=== PATIENT | female | born 1960 | race Caucasian/White ===

== ENCOUNTER 2016-12-25 10:06 | Observation (INO) | payer OTHER ==
--- NOTE | 2016-12-25 10:51 | ED PDOC ---
HPI: Back Time Seen by Provider: 12/25/16 10:30 Chief Complaint (Nursing): Female Genitourinary Chief Complaint (Provider): back pain History Per: Patient History/Exam Limitations: no limitations Onset/Duration Of Symptoms: Days (x 7) Additional Complaint(s): Anila Nunez is a 56 year old female, with a previous medical history of plycystic kidney disease, who presents to the ED with complaints of bilateral lower back pain associated with hematuria ongoing for the past week. Patient denies any fever or chills. She reports taking tylenol with minimal relief. PMD: Frederick Canela MD Nephrology: Dr. Varela Past Medical History Reviewed: Historical Data, Nursing Documentation, Vital Signs Vital Signs: Last Vital Signs Temp 97.6 F 12/25/16 10:11 Pulse 63 12/25/16 10:11 Resp 18 12/25/16 10:11 BP 116/76 12/25/16 10:11 Pulse Ox 100 12/25/16 10:11 - Medical History PMH: Anxiety, Asthma, HTN, Hypercholesterolemia, Hypothyroidism, Chronic Kidney Disease - Family History Family History: States: Unknown Family Hx - Home Medications Home Medications: Ambulatory Orders Medication Instructions Recorded Hydroxychloroquine Sulfate 200 mg PO BID 07/10/14 Albuterol HFA [Ventolin HFA 90 2 puff IH Q4H PRN 12/25/16 mcg/actuation (8 g)] Calcitriol [Rocaltrol] 0.5 mcg PO Q48H 12/25/16 Ergocalciferol (Vitamin D2) 50,000 unit PO QWK 12/25/16 [Vitamin D2] Levothyroxine [Synthroid] 25 mcg PO DAILY 12/25/16 Lidocaine 5% [Lidoderm] 1 patch TD DAILY PRN 12/25/16 Lisinopril [Zestril] 2.5 mg PO DAILY 12/25/16 Pravastatin Sodium [Pravachol] 10 mg PO DAILY 12/25/16 Sevelamer Carbonate [Renvela] 800 mg PO BID 12/25/16 - Allergies Allergies/Adverse Reactions: Allergies Allergy/AdvReac Type Severity Reaction Status Date / Time No Known Allergies Allergy Verified 12/25/16 10:23 Review of Systems ROS Statement: Except As Marked, All Systems Reviewed And Found Negative Constitutional: Negative for: Fever, Chills Genitourinary Female: Positive for: Hematuria Musculoskeletal: Positive for: Back Pain Physical Exam - Reviewed Nursing Documentation Reviewed: Yes Vital Signs Reviewed: Yes - Physical Exam Appears: Positive for: Well, Non-toxic, In Acute Distress (moderate painful) Head Exam: Positive for: ATRAUMATIC, NORMAL INSPECTION, NORMOCEPHALIC Skin: Positive for: Normal Color, Warm, Dry Eye Exam: Positive for: EOMI, Normal appearance, PERRL ENT: Positive for: Normal ENT Inspection Neck: Positive for: Normal, Painless ROM, Supple Cardiovascular/Chest: Positive for: Regular Rate, Rhythm Respiratory: Positive for: CNT, Normal Breath Sounds Gastrointestinal/Abdominal: Positive for: Bowel Sounds, Soft, Tenderness ( bilateral lower quadrants ) Back: Positive for: Other (bilateral lower back tenderness) Extremity: Positive for: Normal ROM Neurologic/Psych: Positive for: Alert, Oriented - Laboratory Results Result Diagrams: 12/25/16 11:43 12/25/16 11:43 - ECG O2 Sat by Pulse Oximetry: 100 (RA) Pulse Ox Interpretation: Normal Medical Decision Making Medical Decision Making: Initial Plan: * CT abd & pelvus w/o contrast * CT renal protocol * labs * PTT * PT * morphine 2 mg IV * urine culture * urinalysis * reevaluation 13:18 CT abd/pelvis FINDINGS: LOWER THORAX: Unremarkable. LIVER: Normal size, contour and attenuation. 9 mm nonspecific rounded low-attenuation lesion in the right hepatic lobe. This has increased in size when compared to prior CT examination of 09/12/2009. ll this measured approximately 6 mm at that time. No biliary dilatation. GALLBLADDER AND BILE DUCTS: Unremarkable. PANCREAS: No mass. There is mild pancreatic ductal dilatation noted in the head and body of the pancreas. This is most prominent at the head/ body junction where it measures up to 6 mm in diameter. Consider evaluation with MRCP. Please note that this pancreatic ductal dilatation was not evident on prior CT examination of 09/12/2009. SPLEEN: Unremarkable. ADRENALS: Unremarkable. No mass. KIDNEYS AND URETERS: Innumerable bilateral renal cysts, of varying attenuation, some truly hyperdense cysts. Curvilinear and nodular mural calcifications within many of these cysts. No hydronephrosis. No hydroureter or ureteral calculus. Findings consistent with adult polycystic kidney disease. This is unchanged in comparison to examination of 09/12/2009. VASCULATURE: Unremarkable. No aortic aneurysm. BOWEL: Sigmoid diverticulosis without evidence of diverticulitis. No bowel obstruction. No other abnormal bowel loops. APPENDIX: Unremarkable. Normal appendix. PERITONEUM: Unremarkable. No free fluid. No free air. LYMPH NODES: Unremarkable. No enlarged lymph nodes. BLADDER: Unremarkable. REPRODUCTIVE: Unremarkable uterus. BONES: No acute fracture. OTHER FINDINGS: None. IMPRESSION: Probable adult polycystic kidney disease. The kidneys are unchanged in appearance when compared to examination of 09/12/2009. No evidence of urinary tract obstruction. 9 mm nonspecific rounded low-attenuation lesion in the right hepatic lobe increased mildly in size from 09/12/2009. Pancreatic ductal dilatation of uncertain etiology. Consider further evaluation with MRCP. No other acute abnormality. Pt had copy of labs drawn on 12/17/16 (scanned into chart), BUN/creat=30/2.17. Scribe Attestation: Documented by Pinky Medina, acting as a scribe for Pinky Martin MD. Provider Scribe Attestation: All medical record entries made by the Scribe were at my direction and personally dictated by me. I have reviewed the chart and agree that the record accurately reflects my personal performance of the history, physical exam, medical decision making, and the department course for this patient. I have also personally directed, reviewed, and agree with the discharge instructions and disposition. ED OBSERVATION Date of observation admission: 12/25/16 Time of observation admission: 12:00 - Observation admission statement Patient is being placed in observation because:: further workup required - Goals of Observation Goals of observation are:: results of further workup Disposition - Clinical Impression Clinical Impression: Urinary tract infection - Patient ED Disposition Is Patient to be Admitted: Transfer of Care - Disposition Disposition Time: 17:00 Condition: STABLE Patient Signed Over To: Matthew Ramos Handoff Comments: Pending CT.
[2016-12-25 11:39] LABS: SQUAMOUS EPITHIAL 1 /hpf (0-5); URINE BACTERIA RARE (<OCC); URINE BILIRUBIN NEGATIVE (NEGATIVE); URINE BLOOD NEGATIVE (NEGATIVE); URINE CLARITY CLEAR (Clear); URINE COLOR STRAW (YELLOW); URINE GLUCOSE (UA) NEG (Normal); URINE LEUKOCYTE ESTERASE SMALL Leu/uL (Negative); URINE NITRATE NEGATIVE (NEGATIVE); URINE PROTEIN NEGATIVE (NEGATIVE); URINE UROBILINOGEN 0.2-1.0 mg/dL (0.2-1.0)
[2016-12-25 11:50] LABS: BASO # 0.1 K/uL (0.0-0.2); BASO % 1.1 % (0.0-2.0); EOS # 0.3 K/uL (0.0-0.7); EOS % 3.5 % (0.0-4.0); HEMOGLOBIN 13.1 g/dL (12.0-16.0); LYMPH # 2.4 K/uL (1.0-4.3); LYMPH % 30.3 % (20.0-40.0); MEAN CELL VOLUME 90.5 fl (81.0-99.0); MEAN CORPUSCULAR HEMOGLOBIN 30.3 pg (27.0-31.0); MEAN CORPUSCULAR HGB CONC 33.5 g/dL (33.0-37.0); MONO # 0.4 K/uL (0.0-0.8); MONO % 5.7 % (0.0-10.0); NEUT # 4.6 K/uL (1.8-7.0); NEUT % 59.4 % (50.0-75.0); NRBC % 0.1 % (0.0-0.0); RBC 4.32 Mil/uL (3.80-5.20); RED CELL DISTRIBUTION WIDTH 13.5 % (11.5-14.5); WHITE BLOOD COUNT 7.8 K/uL (4.8-10.8)
[2016-12-25 11:57] LABS: ALB/GLOB RATIO 1.2 (1.0-2.1); ALBUMIN 4.4 g/dL (3.5-5.0); CALCIUM 9.5 mg/dL (8.4-10.2)
[2016-12-25 12:24] LABS: INR 1.1 (0.9-1.2); PARTIAL THROMBOPLASTIN TIME 26.1 Seconds (25.6-37.1)
--- NOTE | 2016-12-25 13:19 | CT ---
PROCEDURE: CT Abdomen and Pelvis without intravenous contrast HISTORY: BLQ pain, hematuria, PKD COMPARISON: 09/12/2009 TECHNIQUE: Without contrast.. Contrast Dose: 0 Radiation dose: Total exam DLP = 1015.31 mGy-cm. This CT exam was performed using one or more of the following dose reduction techniques: Automated exposure control, adjustment of the mA and/or kV according to patient size, and/or use of iterative reconstruction technique. FINDINGS: LOWER THORAX: Unremarkable. LIVER: Normal size, contour and attenuation. 9 mm nonspecific rounded low-attenuation lesion in the right hepatic lobe. This has increased in size when compared to prior CT examination of 09/12/2009. ll this measured approximately 6 mm at that time. No biliary dilatation. GALLBLADDER AND BILE DUCTS: Unremarkable. PANCREAS: No mass. There is mild pancreatic ductal dilatation noted in the head and body of the pancreas. This is most prominent at the head/ body junction where it measures up to 6 mm in diameter. Consider evaluation with MRCP. Please note that this pancreatic ductal dilatation was not evident on prior CT examination of 09/12/2009. SPLEEN: Unremarkable. ADRENALS: Unremarkable. No mass. KIDNEYS AND URETERS: Innumerable bilateral renal cysts, of varying attenuation, some truly hyperdense cysts. Curvilinear and nodular mural calcifications within many of these cysts. No hydronephrosis. No hydroureter or ureteral calculus. Findings consistent with adult polycystic kidney disease. This is unchanged in comparison to examination of 09/12/2009. VASCULATURE: Unremarkable. No aortic aneurysm. BOWEL: Sigmoid diverticulosis without evidence of diverticulitis. No bowel obstruction. No other abnormal bowel loops. APPENDIX: Unremarkable. Normal appendix. PERITONEUM: Unremarkable. No free fluid. No free air. LYMPH NODES: Unremarkable. No enlarged lymph nodes. BLADDER: Unremarkable. REPRODUCTIVE: Unremarkable uterus. BONES: No acute fracture. OTHER FINDINGS: None. IMPRESSION: Probable adult polycystic kidney disease. The kidneys are unchanged in appearance when compared to examination of 09/12/2009. No evidence of urinary tract obstruction. 9 mm nonspecific rounded low-attenuation lesion in the right hepatic lobe increased mildly in size from 09/12/2009. Pancreatic ductal dilatation of uncertain etiology. Consider further evaluation with MRCP. No other acute abnormality.
[2016-12-26] MEDS ORDERED: Dextrose 5%/0.45% NS 1,000 ML IV SCH (07:00)
--- NOTE | 2016-12-26 10:22 | CP.PCM.HP ---
History of Present Illness - History of Present Illness History of Present Illness: 56 y/o F with PMHx of HTN, RA, Polycystic Kidney disease, Hypothyroidism presenting to ED c/o severe lower back pain that sterted yesterday morning when she woke up from sleeping. Patient states no radiation to lower extremities, aggravating by changes in position, and no associated to urinary symptoms, weakness, numbness or tingling of lower extremities. denies fevers, chills, nausea, vomiting or other complains. Present on Admission - Present on Admission Any Indicators Present on Admission: No History of DVT/PE: No History of Uncontrolled Diabetes: No Urinary Catheter: No Decubitus Ulcer Present: No Review of Systems - Review of Systems All systems: reviewed and no additional remarkable complaints except (as per HPI ) Past Patient History - Infectious Disease Hx of Infectious Diseases: None - Past Medical History & Family History Past Medical History?: Yes - Past Social History Smoking Status: Never Smoked - CARDIAC Hx Hypercholesterolemia: Yes Hx Hypertension: Yes - PULMONARY Hx Respiratory Disorders: Yes Hx Asthma: Yes - NEUROLOGICAL Hx Neurological Disorder: No - HEENT Hx HEENT Problems: No - RENAL Hx Chronic Kidney Disease: Yes Other/Comment: polycystic kidney disease - ENDOCRINE/METABOLIC Hx Endocrine Disorders: Yes Hx Hypothyroidism: Yes - HEMATOLOGICAL/ONCOLOGICAL Hx Blood Disorders: No - INTEGUMENTARY Hx Dermatological Problems: No - MUSCULOSKELETAL/RHEUMATOLOGICAL Hx Falls: No - GASTROINTESTINAL Hx Gastrointestinal Disorders: No - GENITOURINARY/GYNECOLOGICAL Hx Genitourinary Disorders: Yes Other/Comment: POLYCYSTIC KIDNEY DISEASE - PSYCHIATRIC Hx Psychophysiologic Disorder: No Hx Substance Use: No - SURGICAL HISTORY Other/Comment: Abdominoplasty. Left knee surgery x 1 year ago - ANESTHESIA Hx Anesthesia: Yes Hx Anesthesia Reactions: No Meds Allergies/Adverse Reactions: Allergies Allergy/AdvReac Type Severity Reaction Status Date / Time No Known Allergies Allergy Verified 12/25/16 10:23 Physical Exam - Head Exam Head Exam: NORMAL INSPECTION - Eye Exam Eye Exam: Normal appearance - ENT Exam ENT Exam: Mucous Membranes Moist - Respiratory Exam Respiratory Exam: Clear to Auscultation Bilateral, NORMAL BREATHING PATTERN - Cardiovascular Exam Cardiovascular Exam: REGULAR RHYTHM, +S1, +S2 - GI/Abdominal Exam GI & Abdominal Exam: Normal Bowel Sounds, Soft. absent: Distended, Guarding, Rigid, Tenderness - Extremities Exam Extremities exam: Positive for: normal inspection. Negative for: calf tenderness, pedal edema - Back Exam Back exam: NORMAL INSPECTION. absent: CVA tenderness (L), CVA tenderness (R) Additional comments: tenderness to palpation over lumbosacral vertebral spine, and paraspinal muscles - Neurological Exam Neurological exam: Alert, Oriented x3 - Psychiatric Exam Psychiatric exam: Normal Affect, Normal Mood - Skin Skin Exam: Dry, Intact, Normal Color Results - Vital Signs Recent Vital Signs: Last Vital Signs Temp 97.0 F L 12/26/16 10:10 Pulse 56 L 12/26/16 10:10 Resp 18 12/26/16 10:10 BP 117/70 12/26/16 10:10 Pulse Ox 98 12/26/16 10:10 - Labs Result Diagrams: 12/25/16 11:43 12/25/16 11:43 Labs: Laboratory Results - last 24 hr 12/25/16 17:37 Lipase 224 Assessment & Plan - Assessment and Plan (Free Text) Assessment: 56 y/o F with PMHx of HTN, RA, Polycystic Kidney disease, Hypothyroidism admitted to manage intractable lower back pain. Plan: Intractable lower back pain admit for management Morphine 4 mg IVP once in ED c/w pain control -CT abd/pelvis showed PKD, and pancreatic ductal dilation of uncertain etiology.MRCP recommended -f/u MRCP results Hypothyroidism c/w home medication CKD stage 3 most likely secondary to Polycystic Kidney Disease Stable, no hematuria GFR 30 c/w home renvela BID DVT prophylaxis patient is ambulating - Date & Time Date: 12/26/16 Time: 10:45
--- NOTE | 2016-12-26 12:33 | MRI ---
MRCP Indication: Enlarged pancreatic duct Technique: Multiplanar, multisequence MR images of the abdomen were obtained, including heavily T2 weighted MRCP images of the biliary system. Rotating maximum intensity projection images of the biliary system were generated. A total of 669 images were submitted for review. Comparison: CT of the abdomen and pelvis without oral or IV contrast performed 12/25/16 Findings: Examination limited by patient motion. 7 mm T2 hyperintensity at the right hepatic lobe cannot be further characterized on this study, likely cyst. There is no intrahepatic biliary ductal dilatation. Visualized common bile duct appears within normal limits of caliber without definite focal filling defect. The distal most aspect of the common bile duct is not visualized at the level of the confluence. The pancreatic duct appears minimally dilated measuring up to 4 mm in caliber. 4 mm T2 hyperintensity at the pancreatic tail, possibly tiny IPMN. No definite filling defects are seen in the common bile duct or pancreatic duct. Innumerable bilateral T2 renal hyperintensities consistent with cysts demonstrated on CT performed 12/25/16. These cannot be further assessed in the absence of IV contrast. Appearance consistent with adult polycystic kidney disease. The included portions of the noncontrast adrenal glands, spleen, and gallbladder appear unremarkable. No bulky abdominal lymphadenopathy is seen. No ascites. No acute osseous abnormality is detected. Impression: Limited study. Visualized common bile duct appears within normal limits of caliber without definite focal filling defect. The distal most aspect of the common bile duct is not visualized at the level of the confluence. The pancreatic duct appears minimally dilated measuring up to 4 mm in caliber. 4 mm T2 hyperintensity at the pancreatic tail, possibly tiny IPMN. Innumerable bilateral T2 renal hyperintensities consistent with cysts demonstrated on CT performed 12/25/16. These cannot be further assessed in the absence of IV contrast. Appearance consistent with adult polycystic kidney disease. 7 mm T2 hyperintensity at the right hepatic lobe cannot be further characterized on this study, likely cyst.
[2016-12-27] MEDS: Levothyroxine 25 MCG TAB PO SCH (06:44)
[2016-12-27] MEDS: Sevelamer Carb 0.8 gm/Packet PO SCH ×2 (08:28→17:00)
[2016-12-27] MEDS ORDERED: Oxycodone/Acetaminophen 5/325 mg Tab PO PRN (10:31)
[2016-12-27 10:38] LABS: BASO % 0.6 % (0.0-2.0); EOS # 0.3 K/uL (0.0-0.7); EOS % 3.9 % (0.0-4.0); HEMOGLOBIN 12.6 g/dL (12.0-16.0); LYMPH # 1.8 K/uL (1.0-4.3); LYMPH % 22.7 % (20.0-40.0); MEAN CELL VOLUME 89.7 fl (81.0-99.0); MEAN CORPUSCULAR HEMOGLOBIN 30.8 pg (27.0-31.0); MEAN CORPUSCULAR HGB CONC 34.3 g/dL (33.0-37.0); MEAN PLATELET VOLUME 8.4 fl (7.2-11.7); MONO # 0.5 K/uL (0.0-0.8); MONO % 5.7 % (0.0-10.0); NEUT # 5.5 K/uL (1.8-7.0); NEUT % 67.1 % (50.0-75.0); NRBC % 0.1 % (0.0-0.0); RBC 4.1 Mil/uL (3.80-5.20); RED CELL DISTRIBUTION WIDTH 13.2 % (11.5-14.5); WHITE BLOOD COUNT 8.1 K/uL (4.8-10.8)
[2016-12-27 11:00] LABS: ALB/GLOB RATIO 1.2 (1.0-2.1); ALBUMIN 4.2 g/dL (3.5-5.0); CALCIUM 9.4 mg/dL (8.4-10.2)
--- NOTE | 2016-12-27 12:35 | CP.PCM.PN ---
Subjective - Date & Time of Evaluation Date of Evaluation: 12/27/16 Time of Evaluation: 09:00 - Subjective Subjective: Patient is still complaining of lower back pain, now radiating to left lower extremity. No numbness, tingling or weakness in lower extremities. Denies chills, N/V or urinary symptoms. Afebrile Objective - Vital Signs/Intake and Output Vital Signs (last 24 hours): Temp Pulse Resp BP Pulse Ox 97.6 F 63 20 114/74 99 12/27/16 08:45 12/27/16 08:45 12/27/16 08:45 12/27/16 08:45 12/27/16 08:45 - Medications Medications: Current Medications Ketorolac Tromethamine (Toradol) 15 mg IVP Q6 PRN PRN Reason: Pain, moderate (4-7) Levothyroxine Sodium (Synthroid) 25 mcg PO DAILY@0630 [facility] Last Admin: 12/27/16 06:44 Dose: 25 mcg Ondansetron HCl (Zofran Inj) 4 mg IVP Q6 PRN PRN Reason: Nausea/Vomiting Oxycodone/Acetaminophen (Percocet 5/325 Mg Tab) 2 tab PO Q6 PRN PRN Reason: Pain, severe (8-10) Stop: 12/30/16 10:32 Sevelamer Carbonate (Renvela) 0.8 gm PO BID [facility] Last Admin: 12/27/16 08:28 Dose: 0.8 gm - Labs Labs: 12/27/16 10:32 12/27/16 10:32 PT 11.0 Seconds (9.8-13.1) 12/25/16 11:43 INR 1.1 (0.9-1.2) 12/25/16 11:43 APTT 26.1 Seconds (25.6-37.1) 12/25/16 11:43 - Additional Findings Additional findings: Head Exam Head Exam: NORMAL INSPECTION - Eye Exam Eye Exam: Normal appearance - ENT Exam ENT Exam: Mucous Membranes Moist - Respiratory Exam Respiratory Exam: Clear to Auscultation Bilateral, NORMAL BREATHING PATTERN - Cardiovascular Exam Cardiovascular Exam: REGULAR RHYTHM, +S1, +S2 - GI/Abdominal Exam GI & Abdominal Exam: Normal Bowel Sounds, Soft. absent: Distended, Guarding, Rigid, Tenderness - Extremities Exam Extremities exam: Positive for: normal inspection. Negative for: calf tenderness, pedal edema - Back Exam Back exam: NORMAL INSPECTION. absent: CVA tenderness (L), CVA tenderness (R) Additional comments: tenderness to palpation over lumbosacral vertebral spine, and paraspinal muscles - Neurological Exam Neurological exam: Alert, Oriented x3 - Psychiatric Exam Psychiatric exam: Normal Affect, Normal Mood - Skin Skin Exam: Dry, Intact, Normal Color Assessment and Plan - Assessment and Plan (Free Text) Assessment: 56 y/o F with PMHx of HTN, RA, Polycystic Kidney disease, Hypothyroidism admitted to manage intractable lower back pain. Plan: Intractable lower back pain f/u lumbar spine MRI c/w pain control Pancreatic duct dilation in MRCP -CT abd/pelvis showed PKD, and pancreatic ductal dilation of uncertain etiology. -MRCP showed limited study and similar CT findings -GI consult appreciated Hypothyroidism c/w home medication CKD stage 3 most likely secondary to Polycystic Kidney Disease Stable, no hematuria GFR 30 c/w home renvela BID DVT prophylaxis patient is ambulating
--- NOTE | 2016-12-27 15:21 | MRI ---
PROCEDURE: MR LUMBAR SPINE WITHOUT CONTRAST HISTORY: intractable back pain COMPARISON: None available. TECHNIQUE: Multiecho multiplanar sequences were performed through the lumbar spine without the use of intravenous contrast. FINDINGS: Normal lumbar lordosis. Vertebral body heights are preserved. Marrow signal is remarkable for benign hemangioma at the inferior margins of the L2 vertebral body. Marked disc desiccation affects L3-4 through L5-S1 inclusively. Conus medullaris unremarkable at the level of L1. Prevertebral and paraspinal araspinal soft tissues are unremarkable. T12-L1: No disc herniation, spinal canal stenosis or neural foraminal narrowing. L1-2: No disc herniation, spinal canal stenosis or neural foraminal narrowing. L2-3: No disc herniation, general spinal canal stenosis or neural foraminal narrowing. The bilateral lateral recesses are encroached by mild to moderate facet degenerative arthropathy and minimal generalized disc bulging. Borderline bilateral neural foraminal stenoses are suggested. L3-4: No disc herniation, general spinal canal stenosis or neural foraminal narrowing. Lateral recesses are encroached by minimal disc bulging and pddx-rf-[id number] facet degenerative arthropathy. L4-5: No disc herniation or neural foraminal narrowing. There is a borderline central stenosis caused by mild generalized disc bulging and evji-mp-ovwbraum facet joint arthropathy with stenosis concentrated at the lateral recesses symmetrically. L5-S1: A small foraminal disc protrusion is suggested encroaching the inferior margins of the exiting left L5 nerve root in causing mild left neural foraminal stenosis. Minimal disc bulging is encountered here as well as [id number]-[id number] facet degenerate change without significant central canal stenosis. The right neural foramen appears normal. OTHER FINDINGS: Incidental note is made of innumerable cysts in the visualized bilateral kidneys in this patient with a known history of polycystic kidney disease. IMPRESSION: 1. A left foraminal disc protrusion encroaches the inferior left L5 exiting nerve root and causes mild left neural foraminal stenosis. Limited disc bulging is seen generalized at this level as well. 2. Limited multilevel degenerative facet joint and disc bulge changes narrow the lateral recesses at the mid to inferior lumbar spine as discussed above with L4-5 seen worst but with only borderline central canal stenosis. No additional disc herniation appreciated.
--- NOTE | 2016-12-27 21:14 | CON ---
DATE: 12/27/2016 REASON FOR CONSULTATION: MRI with pancreatic cysts. HISTORY OF PRESENT ILLNESS: This is a very yoly 56-year-old female who essentially has a history of positive kidney disease who essentially came in with bilateral low back pain and some hematuria for the past week or so. The patient has been taken Tylenol with minimum relief and was admitted for that. The MRI demonstrates that she has multiple cysts in the pancreas. The patient denies any abdominal discomfort, but complaints of occasional reflux and GERD with some significant weight loss, but cannot quantify. No change in appetite or bowel habits. Currently lying in bed, comfortable and in no apparent distress. PAST MEDICAL HISTORY: As above. PAST SURGICAL HISTORY: As above. MEDICATIONS: Have been reviewed. REVIEW OF SYSTEMS: All other systems have been reviewed, negative apart from the HPI. PHYSICAL EXAMINATION: GENERAL: A pleasant middle-aged female lying in bed comfortably, in no apparent distress. VITAL SIGNS: Grossly unremarkable. HEENT: Head is normocephalic and atraumatic. Eyes; pupils are equal and reactive to light bilaterally. No conjunctival pallor or icterus. NECK: Supple. Normal range of motion. No lymphadenopathy appreciated. HEART: S1 and S2. Regular rate and rhythm. No murmurs appreciated. LUNGS: Coarse breath sounds bilaterally. ABDOMEN: Soft and nontender. Bowel sounds present. No rebound. No guarding. RECTAL: Deferred. EXTREMITIES: Peripheral pulses felt bilaterally. SKIN: Warm and dry and intact. NEUROLOGIC: A and O x3. LABORATORY DATA: Reviewed. CBC is normal. INR is normal. LFTs are normal. Creatinine is 2.1 and BUN is 32. MRI demonstrates multiple cysts in the pancreas, this was done without contrast because she has a creatinine that is 2.1, consider for IPMN, PD is minimally dilated. ASSESSMENT AND PLAN: This is a 56-year-old female with multiple cysts. Unclear etiology of the cysts because she does have positive kidney disease. This could be just benign cysts of the pancreas. We would not need to get a contrast study, either a CT, but possibly MRI with IV contrast, although creatinine at this point is favoring that. We will get a CA19-9. We will follow the patient with you. Thank you for the consult. Chaitanya Coleman MD/ PhD cc: Bryon Barraza MD
[2016-12-28] MEDS: Levothyroxine 25 MCG TAB PO SCH (05:42)
[2016-12-28] MEDS: Sevelamer Carb 0.8 gm/Packet PO SCH (09:21)
[2016-12-28 09:41] VITALS: PULSE 73; RESP 18; TEMP 98.8; O2SAT 99
[2016-12-28 10:32] VITALS: BP 103/66
--- NOTE | 2016-12-28 12:41 | CP.PCM.PN ---
Subjective - Date & Time of Evaluation Date of Evaluation: 12/28/16 Time of Evaluation: 12:00 - Subjective Subjective: no pain Objective - Vital Signs/Intake and Output Vital Signs (last 24 hours): Temp Pulse Resp BP Pulse Ox 98.8 F 73 18 103/66 99 12/28/16 09:30 12/28/16 09:30 12/28/16 09:30 12/28/16 10:32 12/28/16 09:30 - Medications Medications: Current Medications Ketorolac Tromethamine (Toradol) 15 mg IVP Q6 PRN PRN Reason: Pain, moderate (4-7) Last Admin: 12/28/16 05:33 Dose: 15 mg Levothyroxine Sodium (Synthroid) 25 mcg PO DAILY@0630 [facility] Last Admin: 12/28/16 05:42 Dose: 25 mcg Ondansetron HCl (Zofran Inj) 4 mg IVP Q6 PRN PRN Reason: Nausea/Vomiting Oxycodone/Acetaminophen (Percocet 5/325 Mg Tab) 2 tab PO Q6 PRN PRN Reason: Pain, severe (8-10) Stop: 12/30/16 10:32 Sevelamer Carbonate (Renvela) 0.8 gm PO BID [facility] Last Admin: 12/28/16 09:21 Dose: 0.8 gm - Labs Labs: 12/27/16 10:32 12/27/16 10:32 PT 11.0 Seconds (9.8-13.1) 12/25/16 11:43 INR 1.1 (0.9-1.2) 12/25/16 11:43 APTT 26.1 Seconds (25.6-37.1) 12/25/16 11:43 - GI/Abdominal Exam GI & Abdominal Exam: Soft, Normal Bowel Sounds Assessment and Plan - Assessment and Plan (Free Text) Assessment: 56 yo female with pancreatic cysts needs contrast imaging but with Cr elevated need to wait until gfr improves ca 19-9 noted dc planning f/u with me in office in 1-2 weeks
--- NOTE | 2016-12-28 13:05 | CP.PCM.DIS ---
Provider - Provider Date of Admission: 12/25/16 14:27 Attending physician: Bryon Barraza MD Time Spent in preparation of Discharge (in minutes): 30 Diagnosis - Discharge Diagnosis (1) Intervertebral disc protrusion Status: Acute Priority: High Comment: Improving. Naproxen 500 mg BID with meals. F/U with PMD: Dr. Canela in 1 week (2) Polycystic kidney disease Status: Chronic Priority: Medium Comment: Asymptomatic. f/u as outpatient (3) CKD (chronic kidney disease) stage 4, GFR 15-29 ml/min Status: Chronic (4) Pancreatic cyst Status: Acute Priority: Medium Comment: f/u with GI, Dr. Coleman. Hospital Course - Lab Results Lab Results: Most Recent Lab Values WBC 8.1 K/uL (4.8-10.8) 12/27/16 10:32 RBC 4.10 Mil/uL (3.80-5.20) 12/27/16 10:32 Hgb 12.6 g/dL (12.0-16.0) 12/27/16 10:32 Hct 36.8 % (34.0-47.0) 12/27/16 10:32 MCV 89.7 fl (81.0-99.0) 12/27/16 10:32 MCH 30.8 pg (27.0-31.0) 12/27/16 10:32 MCHC 34.3 g/dL (33.0-37.0) 12/27/16 10:32 RDW 13.2 % (11.5-14.5) 12/27/16 10:32 Plt Count 259 K/uL (130-400) 12/27/16 10:32 MPV 8.4 fl (7.2-11.7) 12/27/16 10:32 Neut % (Auto) 67.1 % (50.0-75.0) 12/27/16 10:32 Lymph % (Auto) 22.7 % (20.0-40.0) 12/27/16 10:32 Levy % (Auto) 5.7 % (0.0-10.0) 12/27/16 10:32 Eos % (Auto) 3.9 % (0.0-4.0) 12/27/16 10:32 Baso % (Auto) 0.6 % (0.0-2.0) 12/27/16 10:32 Neut # 5.5 K/uL (1.8-7.0) 12/27/16 10:32 Lymph # 1.8 K/uL (1.0-4.3) 12/27/16 10:32 Levy # 0.5 K/uL (0.0-0.8) 12/27/16 10:32 Eos # 0.3 K/uL (0.0-0.7) 12/27/16 10:32 Baso # 0.0 K/uL (0.0-0.2) 12/27/16 10:32 PT 11.0 Seconds (9.8-13.1) 12/25/16 11:43 INR 1.1 (0.9-1.2) 12/25/16 11:43 APTT 26.1 Seconds (25.6-37.1) 12/25/16 11:43 Sodium 141 mmol/l (132-148) 12/27/16 10:32 Potassium 4.2 MMOL/L (3.6-5.0) 12/27/16 10:32 Chloride 108 mmol/L (98-107) H 12/27/16 10:32 Carbon Dioxide 25 mmol/L (22-30) 12/27/16 10:32 Anion Gap 12 (10-20) 12/27/16 10:32 BUN 29 mg/dl (7-17) H 12/27/16 10:32 Creatinine 1.9 mg/dL (0.7-1.2) H 12/27/16 10:32 Est GFR ( Amer) 33 12/27/16 10:32 Est GFR (Non-Af Amer) 27 12/27/16 10:32 Random Glucose 81 mg/dL (65-105) 12/27/16 10:32 Calcium 9.4 mg/dL (8.4-10.2) 12/27/16 10:32 Total Bilirubin 0.7 mg/dl (0.2-1.3) 12/27/16 10:32 AST 23 U/L (14-36) 12/27/16 10:32 ALT 37 U/L (9-52) 12/27/16 10:32 Alkaline Phosphatase 51 U/L (38-126) 12/27/16 10:32 Total Protein 7.6 G/DL (6.3-8.2) 12/27/16 10:32 Albumin 4.2 g/dL (3.5-5.0) 12/27/16 10:32 Globulin 3.4 gm/dL (2.2-3.9) 12/27/16 10:32 Albumin/Globulin Ratio 1.2 (1.0-2.1) 12/27/16 10:32 Lipase 224 U/L (23-300) 12/25/16 17:37 CA 19-9 Antigen 66.2 U/mL (0-37) H 12/27/16 11:41 Urine Color Straw (YELLOW) 12/25/16 11:22 Urine Clarity Clear (Clear) 12/25/16 11:22 Urine pH 6.0 (5.0-8.0) 12/25/16 11:22 Ur Specific [place] 1.012 (1.003-1.030) 12/25/16 11:22 Urine Protein Negative mg/dL (NEGATIVE) 12/25/16 11:22 Urine Glucose (UA) Neg mg/dL (Normal) 12/25/16 11:22 Urine Ketones Negative mg/dL (NEGATIVE) 12/25/16 11:22 Urine Blood Negative (NEGATIVE) 12/25/16 11:22 Urine Nitrate Negative (NEGATIVE) 12/25/16 11:22 Urine Bilirubin Negative (NEGATIVE) 12/25/16 11:22 Urine Urobilinogen 0.2-1.0 mg/dL (0.2-1.0) 12/25/16 11:22 Ur Leukocyte Esterase Small [place]/uL (Negative) 12/25/16 11:22 Urine RBC (Auto) 1 /hpf (0-3) 12/25/16 11:22 Urine Microscopic WBC 1 /hpf (0-5) 12/25/16 11:22 Ur Squamous Epith Cells 1 /hpf (0-5) 12/25/16 11:22 Urine Bacteria Rare (<OCC) 12/25/16 11:22 - Date & Time of H&P Date of H&P: 12/26/16 Time of H&P: 10:20 Discharge Exam - Head Exam Head Exam: NORMAL INSPECTION - Additional Findings Additional findings: Additional Findings Additional findings: Head Exam Head Exam: NORMAL INSPECTION - Eye Exam Eye Exam: Normal appearance - ENT Exam ENT Exam: Mucous Membranes Moist - Respiratory Exam Respiratory Exam: Clear to Auscultation Bilateral, NORMAL BREATHING PATTERN - Cardiovascular Exam Cardiovascular Exam: REGULAR RHYTHM, +S1, +S2 - GI/Abdominal Exam GI & Abdominal Exam: Normal Bowel Sounds, Soft. absent: Distended, Guarding, Rigid, Tenderness - Extremities Exam Extremities exam: Positive for: normal inspection. Negative for: calf tenderness, pedal edema - Back Exam Back exam: NORMAL INSPECTION. absent: CVA tenderness (L), CVA tenderness (R) Additional comments: tenderness to palpation over lumbosacral vertebral spine, and paraspinal muscles , however improving compared with yesterday - Neurological Exam Neurological exam: Alert, Oriented x3 - Psychiatric Exam Psychiatric exam: Normal Affect, Normal Mood - Skin Skin Exam: Dry, Intact, Normal Color Discharge Plan - Discharge Medications Prescriptions: Naproxen [Naprosyn] 500 mg PO BID PRN #30 tablet PRN Reason: Pain, Moderate (4-7) - Follow Up Plan Condition: GOOD Disposition: HOME/ ROUTINE Instructions: Tramadol (By mouth), Chronic Kidney Disease (DC), Heart Healthy Diet (DC) Additional Instructions: F/U with PMDDr. Candelaria in 1 week F/U with Dr. Bertrand in 1 week ER precautions given tramadol 50 mg as needed for pain twice a day Seek medical attention if symptoms worsens Referrals: Frederick Candelaria MD [Family Provider] - Chaitanya Coleman MD, PhD [Staff Provider] -
== END 2016-12-28 12:59 | disposition home or self-care (01) ==
LOC: H.ER 10:06 → H.EROBSV 14:27 → INTOOBSV 17:24 → OBSVTOIN 17:24 → H.ERHOLD 17:47 → H.PEDS 18:53
PROVIDERS: ADMIT Family Medicine; ATTEND Family Medicine
DX: M51.26 Other intervertebral disc displacement, lumbar region (principal); I12.9 Hypertensive chronic kidney disease with stage 1 through stage 4 chronic kidney disease, or unspecified chronic kidney disease; N18.4 Chronic kidney disease, stage 4 (severe); K86.2 Cyst of pancreas; Q61.2 Polycystic kidney, adult type; N39.0 Urinary tract infection, site not specified; E03.9 Hypothyroidism, unspecified; E78.00 Pure hypercholesterolemia, unspecified; K21.9 Gastro-esophageal reflux disease without esophagitis; J45.909 Unspecified asthma, uncomplicated; F41.9 Anxiety disorder, unspecified